=== PATIENT | female | born 1970 | race Caucasian/White ===

== ENCOUNTER 2019-09-26 15:53 | Inpatient (IN) ==
--- NOTE | 2019-09-26 17:30 | HISTORY AND PHYSICAL ---
HISTORY OF PRESENT ILLNESS: Ms. Heath is a 49-year-old followed, I believe by CHRISTINA Jauregui. She is complaining of increased work of breathing for the last couple days. She said that she has become more short of breath. Denies fever or chills. No pleuritic pain, but she has noticed increased orthopnea, increased swelling in her ankles. PAST MEDICAL HISTORY: Includes she had colon cancer with chemotherapy and resection. Following that, they found that she had liver cirrhosis which is fatty liver disease and they were talking about getting on a list for a bypass, but they are pursuing the gastric sleeve. She has a history of COPD, history of seizures, a history of fibromyalgia, diabetes mellitus type 2, hypertension. SURGERIES: She has had several. She has had both her knees replaced. She has had a hysterectomy, gallbladder taken out. I think she had surgery on her foot. She said there are others that she does not remember. ALLERGIES: Azithromycin. SOCIAL HISTORY: Patient lives at home. She is on disability. Just lost her dad this last year. Her primary care physician is CHRISTINA Banks. Denies alcohol, smoking, or illicit drugs. REVIEW OF SYSTEMS: General: No weight gain or loss that she is aware of. She has not been checking, but she does feel like she has had swelling in her feet. HEENT: No change in visual or hearing acuity. No adenopathy. No neck pain or neck swelling. Respiratory: As noted above. Cardiovascular: No chest pain or tachy palpitation. Gastrointestinal/genitourinary: Unremarkable. Musculoskeletal/Neurologic: No significant complaints Endocrinologic/hemologic: No significant history. PHYSICAL EXAMINATION: GENERAL: A well-developed, well-nourished, white female. Awake, alert, and oriented x3. CVP is about 10 cm water pressure from the angle of Wilfred. LUNGS: Clear. Decreased breath sounds at both bases, anterior and posterior. CARDIOVASCULAR: Regular rhythm and rate. PMI nondisplaced. Carotid, radial, and femoral pulses 2+ and symmetrical. ABDOMEN: Soft, nondistended, nontender. EXTREMITIES: She has trace pitting edema from the ankles to mid price. SKIN: Without any rashes. Oral and nasal mucosa unremarkable. ASSESSMENT AND PLAN: 1. Appears to have pulmonary venous hypertension. We are going to try and diurese her. We are going to watch her afterload and check her left ventricular function, make sure there is no sign of valvular dysfunction. I could not appreciate signs of that on exam. We will check serial cardiac enzymes and troponin. We will check T4 and TSH, B12 and folate. Recheck a proBNP in the morning. We will follow her electrolytes including sodium, potassium, and magnesium. Note the lab is pending at this time. 2. Distant history of colon cancer, status post colon resection with chemotherapy several years ago. 3. She has fatty liver disease with cirrhosis. 4. Morbid obesity. They are actually contemplating doing a gastric sleeve. 5. History of chronic obstructive pulmonary disease on her past history. 6. Hypertension. cc: Chi Espinoza MD
[2019-09-26] MEDS ORDERED: APRESOLINE PO ONE (17:57)
[2019-09-26 18:17] LABS: ALLEN TEST YES; BE 10.7 mmoll (-3.0-3.0); BLOOD TYPE ARTERIAL; HCO3-(ACT) 33.2 mmoll (20.0-26.0); O2(CT) 14.1 mL/dL (15.0-23.0); O2HB 93.6 % (95.0-99.0); PCO2(98.6) 45 mmHg (35-45); PO2(98.6) 65 mmHg (60-100); SAMPLE BLOOD; SAO2 96.6 % (95.0-100.0); THB 10.7 g/dL (11.5-17.4)
[2019-09-26 18:18] LABS: MODALITY CANNULA
[2019-09-26] MEDS: LASIX IV SCH (18:20)
--- NOTE | 2019-09-26 19:05 | Diag Imaging Result Doc PS360 ---
EXAM: CHEST-2 VIEWS 09/26/2019 HISTORY: Acute CHF exac. TECHNIQUE: AP and lateral chest upright COMMENT: The inspiration is suboptimal. There is increased pulmonary vascularity. There may be interstitial pulmonary edema. This appears worse compared to 06/11/2015. IMPRESSION: Mild pulmonary edema. Electronically signed by Merrill Petty 09/26/2019 7:02 PM
[2019-09-26] MEDS: TYLENOL PO PRN (21:57)
[2019-09-26] MEDS: ZOFRAN IV PRN (21:57)
[2019-09-27] MEDS: DUONEB (A & A) INH SCH ×4 (03:17→22:11)
[2019-09-27] MEDS: LASIX IV SCH ×2 (05:13→12:24)
[2019-09-27 06:00] LABS: ALLEN TEST YES; BE 11.8 mmoll (-3.0-3.0); BLOOD TYPE ARTERIAL; HCO3-(ACT) 34.1 mmoll (20.0-26.0); O2(CT) 14.1 mL/dL (15.0-23.0); O2HB 95.6 % (95.0-99.0); PCO2(98.6) 48 mmHg (35-45); PO2(98.6) 84 mmHg (60-100); SAMPLE BLOOD; SAO2 98.8 % (95.0-100.0); THB 10.4 g/dL (11.5-17.4); pH(98.6) 7.49 (7.35-7.45)
[2019-09-27 06:01] LABS: MODALITY CANNULA
[2019-09-27 06:24] LABS: AGAP 14; ALB/GLOB RATIO 0.8; ALBUMIN 2.8 g/dL (3.5-5.0); ALKALINE PHOSPHATASE 130 U/L (32-104); BUN 13 mg/dL (8-22); CALCIUM 8.1 mg/dL (8.8-10.2); CHLORIDE 94 mmol/L (98-107); COSMO 279; CREATININE 0.9 mg/dL (0.5-0.9); ESTIMATED GFR > 60; GLUCOSE 131 mg/dL (70-104); GOT 36 U/L (10-30); GPT 19 U/L (10-36); POTASSIUM 2.9 mmol/L (3.5-5.1); SODIUM 139 mmol/L (136-145); TCO2 31 mmol/L (25-35); TOTAL BILIRUBIN 1.46 mg/dL (0.20-1.00); TOTAL PROTEIN 6.5 g/dL (6.3-8.3)
[2019-09-27 06:28] LABS: BASO# 0.05 X1000 (0.0-0.2); BASO% 0.9 % (0.0-0.8); EOS# 0.06 X1000 (0.0-0.7); EOS% 1.1 % (0.0-10.0); HEMATOCRIT 33.7 % (37.0-47.0); HEMOGLOBIN 10.5 g/dL (12.0-16.0); LYMPH# 1.68 X1000 (1.2-3.4); LYMPH% 29.5 % (20.5-51.1); MCH 25.9 PG (27-31); MCHC 31.2 g/dL (33-37); MCV 83.2 FL (81-99); MONO% 17.6 % (1.7-9.3); MPV 10.6 FL (7.4-10.4); NEUT% 50.9 % (42.2-75.2); PLT 97 X1000 (130-400); RBC 4.05 XMIL (4.2-5.4); RDW 19.4 % (11.5-14.5); WBC 5.69 X1000 (4.8-10.8)
--- NOTE | 2019-09-27 07:19 | Diag Imaging Result Doc PS360 ---
EXAM: CHEST-PORTABLE 09/27/2019 HISTORY: Dyspnea,Pulmonary Edema,CHF TECHNIQUE: AP portable upright at 0510 COMMENT: There is a Port-A-Cath on the right with its tip just above the right atrium. The inspiration is less optimal than on 09/26/2019 and there is slightly more parahilar opacity in the right upper lobe than on the previous study. IMPRESSION: Slightly worsened pulmonary edema versus pneumonia particularly in the right upper lobe. Electronically signed by Merrill Petty 09/27/2019 7:16 AM
[2019-09-27] MEDS: ZOFRAN IV PRN ×3 (07:59→19:43)
[2019-09-27] MEDS: NORCO-10 PO PRN ×2 (12:24→21:11)
[2019-09-27 12:40] LABS: CK INDEX 0.4 (0.0-2.5); CK-MB 1.05 ng/mL (0.0-5.0)
--- NOTE | 2019-09-27 14:48 | PROGRESS NOTE ---
DATE: 09/27/2019 SUBJECTIVE: Patient does not feel like she is breathing much better. She seems to be doing okay. She is off BiPAP, but she also complained of nausea and vomiting. OBJECTIVE: Blood pressure is 140/96, heart rate 97, temp was 99.4, respiratory rate 19.Cardiovascular: Regular rate and rhythm. Pulmonary: Bilateral breath sounds clear to auscultation. GI: Soft, nontender, nondistended. Bowel sounds are positive. LABORATORY DATA: Potassium is down to 2.9, T bilirubin 1.46, AST and ALT 36 and 19. CPK went up from 59 to 254 with a normal troponin. PH 7.49, pCO2 48, PO2 84. Hemoglobin and hematocrit 10 and 33, platelets are 97,000. PROBLEM LIST: 1. Acute congestive heart failure exacerbation, likely may be the initial trigger. She sounds improved after diuretics intravenously. We will continue treatment and follow closely. Awaiting echo to decide about this is true CHF versus cor pulmonale related to obstructive sleep apnea. 2. Cirrhosis with chronic liver disease, she feels is related to chemotherapy. We will continue to monitor. She probably needs to be on some Aldactone. She is really not on any diuretics or anything, but we will continue diuresis and see how she does. 3. Abdominal pain, nausea, vomiting, unclear etiology. Could be passive congestion. We will continue to monitor. Get an abdominal ultrasound and follow. 4. Hypokalemia. We will supplement, follow, check her magnesium levels and monitor. DISPOSITION: Pending her clinical status. If there has been a clear CHF diagnosis, we will get a cardiology consult and follow. I am awaiting echo results before we pursue anything further from that standpoint. We will need to advise on weight loss long-term. Apparently, she is being evaluated for gastric sleeve to see about weight loss from that standpoint. cc: Alec Merino MD
--- NOTE | 2019-09-27 15:05 | Diag Imaging Result Doc PS360 ---
EXAM: US ABDOMEN-COMPLETE 09/27/2019 HISTORY: abdominal pain TECHNIQUE: Abdominal ultrasound COMMENT: The study is markedly suboptimal due to the patient's body habitus. The aorta and inferior vena cava are not well seen. The pancreas is obscured. Very poor detail is seen in the liver. The gallbladder surgically absent. The common bile duct measures almost 14 mm in diameter. There is an apparent 7 mm calculus present in the right renal collecting system anteriorly. There is no evidence of hydronephrosis on either side. There are no definite fluid collections. The spleen is enlarged measuring over 16 cm. IMPRESSION: Suboptimal study. Right nephrolithiasis. Distended common bile duct. This is possible this is physiologic following cholecystectomy. Splenomegaly. Electronically signed by Merrill Petty 09/27/2019 3:03 PM
[2019-09-27] MEDS: POTASSIUM CHLORIDE 20 MEQ/SWI 20 MEQ/100 ML IVPB IV SCH ×2 (15:14→17:38)
[2019-09-27] MEDS: MIRAPEX PO SCH ×2 (15:15→21:11)
[2019-09-27] MEDS: MAXIPIME 2 GM/NS 2 GM/100 ML IVPB IV SCH (15:15)
[2019-09-27] MEDS: PHENERGAN IV PRN (16:33)
[2019-09-27] MEDS: SODIUM CHLORIDE 0.9% INJ PRN (16:33)
[2019-09-27] MEDS ORDERED: MIRAPEX PO SCH (17:00)
[2019-09-27] MEDS: SEROQUEL PO SCH (21:11)
[2019-09-27 21:27] LABS: ALB/GLOB RATIO 0.8; ALBUMIN 2.9 g/dL (3.5-5.0); CALCIUM 7.6 mg/dL (8.8-10.2); POTASSIUM 3.1 mmol/L (3.5-5.1); TOTAL BILIRUBIN 1.35 mg/dL (0.20-1.00); TOTAL PROTEIN 6.5 g/dL (6.3-8.3)
[2019-09-27] MEDS ORDERED: POTASSIUM CHLORIDE 20% LIQUID PO ONE (23:41)
[2019-09-28] MEDS: MAXIPIME 2 GM/NS 2 GM/100 ML IVPB IV SCH ×2 (00:18→12:54)
[2019-09-28] MEDS: LASIX IV SCH ×2 (00:19→12:53)
[2019-09-28] MEDS: DUONEB (A & A) INH SCH ×6 (03:26→23:14)
[2019-09-28 04:34] LABS: MAGNESIUM 1.7 mg/dL (1.5-2.7); POTASSIUM 3.4 mmol/L (3.5-5.1)
[2019-09-28 04:51] LABS: BASO# 0.06 X1000 (0.0-0.2); BASO% 1.7 % (0.0-0.8); EOS# 0.06 X1000 (0.0-0.7); EOS% 1.7 % (0.0-10.0); HEMATOCRIT 33.7 % (37.0-47.0); HEMOGLOBIN 10.4 g/dL (12.0-16.0); LYMPH# 0.87 X1000 (1.2-3.4); LYMPH% 24.1 % (20.5-51.1); MCH 26.3 PG (27-31); MCHC 30.9 g/dL (33-37); MCV 85.3 FL (81-99); MONO# 0.78 X1000 (0.11-0.59); MONO% 21.6 % (1.7-9.3); MPV 11.9 FL (7.4-10.4); NEUT# 1.84 X1000 (1.4-6.5); NEUT% 50.9 % (42.2-75.2); PLT 94 X1000 (130-400); RBC 3.95 XMIL (4.2-5.4); RDW 19.9 % (11.5-14.5); WBC 3.61 X1000 (4.8-10.8)
[2019-09-28] MEDS ORDERED: POTASSIUM CHLORIDE 20% LIQUID PO ONE (05:43)
[2019-09-28 07:17] LABS: LYMPHS 42 % (21-51); MONO 6 % (1-9); SEGS 52 % (42-75)
[2019-09-28] MEDS ORDERED: MIRAPEX PO SCH (09:00)
[2019-09-28] MEDS: MIRAPEX PO SCH ×3 (09:05→20:06)
--- NOTE | 2019-09-28 10:43 | ECHO REPORT ---
ORDER DATE: 09/27/2019 ECHOCARDIOGRAPHIC MEASUREMENTS: 1. Septal thickness 1.2. 2. Left ventricular internal diameter in diastole 3.9. SUMMARY: 1. Very difficult study for interpretation due to very limited acoustic window quality. Intravenous echo contrast agent Optison was utilized to enhance endocardial definition. 2. Aortic valve is without gross structural abnormality and appears to open adequately on 2- dimensional images. The peak gradient across the aortic valve is 11 mmHg. Mitral and tricuspid valves are without gross structural abnormality, while pulmonic valve is not well demonstrated. There is trace tricuspid regurgitation. The aortic root is grossly normal in size, 3. Normal left ventricular chamber size with mild concentric left ventricular hypertrophy is suggested on 2-dimensional images. The estimated left ventricular ejection fraction appears to be at least 55%. No obvious regional wall motion abnormalities can be appreciated. The left atrium, right atrium, and right ventricle are grossly normal in size. 4. No pericardial effusion. 5. Inferior vena cava not well demonstrated. cc: MD Peggy Tenorio CRNP
--- NOTE | 2019-09-28 12:46 | Diag Imaging Result Doc PS360 ---
EXAM: CHEST-PORTABLE INDICATION: dyspnea TECHNIQUE: One view COMPARISON: 09/27/2019 FINDINGS: The chest port is in stable position. Inspiration is suboptimal similar to the previous study. Perihilar opacities most consistent with pulmonary edema and pulmonary venous congestion are grossly unchanged. No new consolidation is identified. Cardiac silhouette is stable. IMPRESSION: Grossly stable chest. Electronically signed by Matt Humphrey 09/28/2019 12:44 PM
[2019-09-28] MEDS: SOLU-MEDROL IV SCH ×2 (12:53→20:07)
[2019-09-28] MEDS: NORCO-10 PO PRN ×2 (12:54→22:12)
[2019-09-28] MEDS: ALDACTONE PO SCH (16:55)
--- NOTE | 2019-09-28 17:36 | PROGRESS NOTE ---
DATE: 09/28/2019 SUBJECTIVE: The patient has no major complaints except she feels like she just cannot breathe. She had an episode last night where she just was having a lot of shortness of breath and could not catch her breath. OBJECTIVE: Vital signs: Blood pressure 122/77, heart rate of 106, respiratory rate of 20, temperature 99.2 degrees. Cardiovascular: Regular rate and rhythm. Pulmonary: Bilateral breath sounds clear to auscultation. Gastrointestinal: Soft, nontender, nondistended. Bowel sounds are positive. LABORATORY DATA: White count 3.6, hemoglobin and hematocrit 10 and 33, platelets of 94,000. Potassium is just 3.9 today. PROBLEM LIST: 1. Acute congestive heart failure exacerbation, diastolic. We will continue diuretics and follow. Her echocardiogram really did not look that bad. I am not entirely sure this may not be cor pulmonale or secondary pulmonary edema that is not related to congestive heart failure, and today she has much more bronchospasm as well. 2. Hypercapnic respiratory failure. We are trying to wean her BiPAP off. She had to go back on it last night. 3. Cirrhosis, compensated. We will continue diuretics. We will add a little bit of low-dose Aldactone, and we will see how things go especially with her next problem. 4. Hypokalemia. We will continue treatment supplementation. Check magnesium levels. 5. Chronic obstructive pulmonary disease exacerbation. She is on antibiotics, breathing treatments. We will add steroids because she has some wheezing today and get a pulmonary opinion. We will continue to monitor her in the [facility] for the time being. cc: Alec Merino MD
[2019-09-28] MEDS: SEROQUEL PO SCH (20:07)
[2019-09-29] MEDS: LASIX IV SCH ×2 (00:13→12:25)
[2019-09-29] MEDS: MAXIPIME 2 GM/NS 2 GM/100 ML IVPB IV SCH ×2 (00:13→12:25)
--- NOTE | 2019-09-29 00:29 | CONSULTATION ---
DATE OF CONSULTATION: 09/28/2019 REQUESTING PROVIDER: Alec Merino MD REASON FOR CONSULTATION: Respiratory failure. HISTORY OF PRESENT ILLNESS: This is a 49-year-old female with a medical history of COPD with chronic hypoxic respiratory failure, morbid obesity, obstructive sleep apnea, colon cancer, cirrhosis with chronic liver disease, fibromyalgia. It appears like she was directly admitted since 09/26/2019 with pulmonary venous hypertension, with worsening shortness of breath. She has been treated with Lasix twice a day, of which the dosage has being increase from 40 to 60 mg since yesterday. Cefepime was started yesterday, and today the patient started receiving IV Solu- Medrol, too. The patient reported productive cough which somehow has been worsening today. The sputum has become loose with some yellow thick spots. The patient has intermittent nausea and vomiting, especially yesterday. She has been improving today. Also has some mild diarrhea. The patient also reports chronic difficulty hearing, chronic pedal edema which actually has been improved since admission. Witnessed snoring, daily sleepiness and generalized weakness. She has no fever, chills, chest pain, palpitations, bowel habit change or urination discomfort currently. PAST MEDICAL HISTORY: 1. COPD with chronic hypoxic respiratory failure. The patient is on 2.5 L oxygen at home for several years. 2. Morbid obesity. Current BMI 49.8. 3. Obstructive sleep apnea. Last sleep study was done 3 years ago. The patient stated that she cannot afford a CPAP machine, so she has not used any CPAP or BiPAP. 4. History of colon cancer in 2013, status post surgical removal and chemotherapy. 5. Cirrhosis with chronic liver disease. The patient reported that this was diagnosed after chemotherapy for colon cancer, and she was told that the chemotherapy may contribute to her chronic liver disease. 6. Fibromyalgia. 7. History of seizure. 8. Diabetes mellitus type 2. 9. Hypertension. 10. Restless leg syndrome. 11. GERD. 12. Status post bilateral knee replacement. 13. Status post hysterectomy. 14. Status post cholecystectomy. 15. Status post some foot surgery. FAMILY HISTORY: Positive for COPD, heart attack, endstage renal disease and cirrhosis. SOCIAL HISTORY: The patient lives at home with her family. She has 3 children. She has 2 indoor dogs and 1 indoor cat as pets. She is on disability. She lost her father this February. She has no history of alcohol, tobacco or illicit drug use. She does have extensive secondhand smoking exposure when she was young. ALLERGIES: Azithromycin and adhesive tape. REVIEW OF SYSTEMS: A 10-point review of systems was conducted, and the pertinence is listed within the HPI, otherwise noncontributory. PHYSICAL EXAMINATION: Vital signs: Temperature 99.2, blood pressure 122/77, pulse 106, respiratory rate 20, oxygen saturation 95% on nasal cannula at 3 L.General: Morbidly obese, lying in bed. On BiPAP mask originally, with pressure 12/5 and FIO2 of 32%. After I stepped in, the patient took the BiPAP mask off and put on nasal cannula at 3 L, and she tolerates well. HEENT: Atraumatic, normocephalic. Trachea midline. Mucosa pink and moist. Respiratory: Even and unlabored. Symmetrical excursion. Auscultation revealed diminished breathing sounds bilaterally, prolonged expiratory phase and some mild to moderate expiratory wheezing, with left side worse than the right side. Cardiovascular: Regular rate and rhythm. Gastrointestinal: Soft, obese, protuberant, nontender. Normoactive bowel sounds in all 4 quadrants. Extremities: No pedal edema. No cyanosis. No clubbing. Dorsalis pedis 1+ bilaterally. Neurologic: Alert and oriented x4. Speech fluent. Follows commands. LABORATORY DATA: White blood cells 3.61, hemoglobin 10.4, hematocrit 33.7, platelets 94,000. Potassium 3.9. DIAGNOSTIC DATA: Chest x-ray this morning showed grossly stable chest with perihilar opacities, most consistent with pulmonary edema and pulmonary venous congestion. ASSESSMENT: This is a 49-year-old female with a medical history of chronic obstructive pulmonary disease with chronic hypoxic respiratory failure, morbid obesity, obstructive sleep apnea, colon cancer, cirrhosis with chronic liver disease, fibromyalgia, seizure, diabetes mellitus type 2 and hypertension. She has been admitted since 09/26/2019 with pulmonary venous hypertension and worsening shortness of breath. 1. [id number] hypoxic respiratory failure, currently on nasal cannula at 3 L and patient tolerates very well. 2. Chronic obstructive pulmonary disease exacerbation. 3. Morbid obesity with obstructive sleep apnea. 4. Pulmonary edema and pulmonary venous congestion. PLAN: 1. Continue supplemental oxygen. Continue BiPAP at bedtime and as needed. 2. Continue antibiotics, steroid and bronchodilators. 3. Follow up with CBC, BMP and chest x-ray if indicated. 4. Recommend patient to have outpatient sleep study after discharge. The patient reported that currently she has [employer] insurance, and she is ready to get a CPAP or BiPAP device if needed. 5. Recommend weight control. 6. Further recommendations pending hospital course. Thank you for the courtesy of this consult. Dictated by CHRISTINA Reed for Summer Fisher MD cc: CHRISTINA Reed MD [facility]
[2019-09-29] MEDS: DUONEB (A & A) INH SCH ×6 (03:24→23:22)
[2019-09-29] MEDS: SOLU-MEDROL IV SCH ×3 (04:01→20:54)
[2019-09-29 05:59] LABS: BASO# 0.01 X1000 (0.0-0.2); BASO% 0.3 % (0.0-0.8); HEMATOCRIT 33.9 % (37.0-47.0); HEMOGLOBIN 10.2 g/dL (12.0-16.0); LYMPH# 0.43 X1000 (1.2-3.4); LYMPH% 10.9 % (20.5-51.1); MCH 25.1 PG (27-31); MCHC 30.1 g/dL (33-37); MCV 83.5 FL (81-99); MONO# 0.17 X1000 (0.11-0.59); MONO% 4.3 % (1.7-9.3); MPV 10.8 FL (7.4-10.4); NEUT# 3.34 X1000 (1.4-6.5); NEUT% 84.5 % (42.2-75.2); PLT 69 X1000 (130-400); RBC 4.06 XMIL (4.2-5.4); RDW 18.8 % (11.5-14.5); WBC 3.95 X1000 (4.8-10.8)
[2019-09-29 06:33] LABS: AGAP 9; BUN 15 mg/dL (8-22); CALCIUM 8.5 mg/dL (8.8-10.2); CHLORIDE 90 mmol/L (98-107); COSMO 274; CREATININE 0.9 mg/dL (0.5-0.9); ESTIMATED GFR > 60; GLUCOSE 188 mg/dL (70-104); POTASSIUM 3.4 mmol/L (3.5-5.1); SODIUM 134 mmol/L (136-145); TCO2 35 mmol/L (25-35)
[2019-09-29] MEDS: ALDACTONE PO SCH (08:38)
[2019-09-29] MEDS: MIRAPEX PO SCH ×3 (08:38→20:53)
[2019-09-29] MEDS ORDERED: ROBITUSSIN-DM PO PRN (08:57)
[2019-09-29] MEDS: NORCO-10 PO PRN (15:17)
[2019-09-29] MEDS ORDERED: KLOR-CON PO ONE (16:34)
--- NOTE | 2019-09-29 19:59 | PROGRESS NOTE ---
DATE: 09/29/2019 SUBJECTIVE: She looks better today. She is not working as hard to breathe. OBJECTIVE: vital signs: Blood pressure is 137/79, heart rate of 107, respiratory rate 17, temperature 98.7 degrees, 94%. Cardiovascular: Regular rate and rhythm. Pulmonary: Bilateral breath sounds. Clear to auscultation. Gastrointestinal: Soft, nontender, nondistended. Bowel sounds were positive. LABORATORY DATA: White count 3.9, hemoglobin and hematocrit 10 and 33, platelets of 69,000. Potassium 3.4. ProBNP of 38 which is inconsistent with CHF. PROBLEM LIST: 1. Acute hypercapnic respiratory failure which is likely due to obesity hypoventilation Pickwickian syndrome. She seems to be doing better. I think I would consider setting her up with Trilogy. We will discuss this with Dr. Fisher. 2. Cor pulmonale exacerbation. She has diastolic heart failure. I do not think she has true congestive heart failure in the sense of primary heart failure. She is responding to diuretics. I think I am going to back down a little bit on those. But her proBNP is negative which would argue against heart failure although I do think she has a component of pulmonary edema. 3. Cirrhosis. Aware of diagnosis. Appears to be compensated for the most part. 4. Acute chronic obstructive pulmonary disease exacerbation. We will continue breathing treatments and antibiotics and follow. DISPOSITION: I think she is improving. cc: Alec Merino MD
[2019-09-29] MEDS: SEROQUEL PO SCH (20:53)
[2019-09-29] MEDS: MIRALAX PO SCH (21:09)
[2019-09-30] MEDS: LASIX IV SCH ×2 (00:24→12:56)
[2019-09-30] MEDS: MAXIPIME 2 GM/NS 2 GM/100 ML IVPB IV SCH ×2 (00:24→13:04)
[2019-09-30] MEDS: NORCO-10 PO PRN ×2 (01:52→23:39)
[2019-09-30] MEDS: DUONEB (A & A) INH SCH ×6 (03:43→22:41)
[2019-09-30] MEDS: SOLU-MEDROL IV SCH ×3 (04:54→22:34)
[2019-09-30 06:22] LABS: BASO# 0.01 X1000 (0.0-0.2); BASO% 0.1 % (0.0-0.8); EOS# 0.02 X1000 (0.0-0.7); EOS% 0.2 % (0.0-10.0); HEMATOCRIT 33.4 % (37.0-47.0); LYMPH# 0.74 X1000 (1.2-3.4); LYMPH% 7.7 % (20.5-51.1); MCH 25.2 PG (27-31); MCHC 29.9 g/dL (33-37); MCV 84.1 FL (81-99); MONO# 0.53 X1000 (0.11-0.59); MONO% 5.5 % (1.7-9.3); MPV 10.9 FL (7.4-10.4); NEUT# 8.25 X1000 (1.4-6.5); NEUT% 86.5 % (42.2-75.2); PLT 71 X1000 (130-400); RBC 3.97 XMIL (4.2-5.4); RDW 18.7 % (11.5-14.5); WBC 9.55 X1000 (4.8-10.8)
[2019-09-30] MEDS: TYLENOL PO PRN (06:53)
[2019-09-30 07:34] LABS: AGAP 9; BUN 22 mg/dL (8-22); CALCIUM 9.2 mg/dL (8.8-10.2); CHLORIDE 91 mmol/L (98-107); COSMO 279; CREATININE 0.8 mg/dL (0.5-0.9); ESTIMATED GFR > 60; GLUCOSE 192 mg/dL (70-104); POTASSIUM 4.6 mmol/L (3.5-5.1); SODIUM 135 mmol/L (136-145); TCO2 35 mmol/L (25-35)
[2019-09-30] MEDS: MIRALAX PO SCH (08:09)
[2019-09-30] MEDS: MIRAPEX PO SCH ×3 (08:09→20:30)
[2019-09-30] MEDS: ALDACTONE PO SCH (08:09)
[2019-09-30 10:17] LABS: BANDS 8 % (0-1); LYMPHS 2 % (21-51); SEGS 90 % (42-75)
[2019-09-30 10:29] LABS: HYPOCHROM 1+
[2019-09-30] MEDS ORDERED: PEPCID PO SCH (11:00)
--- NOTE | 2019-09-30 13:34 | PROVIDER PROGRESS NOTE ---
Progress Note Pulmonary Additional Note: Respiratory failure and hypercarbia in the setting of morbid obesity. She should benefit from Treology machine.
--- NOTE | 2019-09-30 14:47 | PROGRESS NOTE ---
DATE: 09/30/2019 SUBJECTIVE: She is breathing better. Apparently, she got a shower today. OBJECTIVE: Vital signs: Blood pressure 142/86, heart rate of 108, respiratory rate 20, temperature 98.6 degrees, 94% on 3 L. Cardiovascular: Regular rate and rhythm, somewhat muffled. Pulmonary: I did not appreciate any end-expiratory wheezes today. GI: Soft, nontender, nondistended. Bowel sounds are positive. Extremities: She has trace edema. LABORATORY DATA: White count is 9.5, hemoglobin and hematocrit 10 and 33, platelets are 71,000 and they have been low this whole time, but she does have a history of cirrhosis. Sodium is 135. ProBNP is still normal. PROBLEM LIST: 1. Acute hypercapnic respiratory failure due to obesity hypoventilation, sleep apnea, Pickwickian syndrome. She is improving. I have discussed with Dr. Fisher about setting her up with outpatient positive-pressure ventilation. She is due for a gastric sleeve and hopefully that will help with the weight issues. But in the meantime, I think she is going to need positive pressure support at home to help regulate her breathing. She has persistent hypercapnia and will likely need this. I have discussed the case with Dr. Fisher. 2. Cor pulmonale exacerbation, diastolic heart failure exacerbation. We will continue diuretics. ProBNP is normal but again, I think this is CHF related to elevated right-sided heart pressures and not systolic heart failure or anything like that. 3. Presumed bronchitis, chronic obstructive pulmonary disease exacerbation. I think we are going to wean her steroids a bit today. She is on empiric antibiotics with cefepime. 4. Cirrhosis is I think overall compensated. We will continue her regular medications and follow. DISPOSITION: Pending clinical status. I think she is probably close to being able to go to the floor. We will continue to monitor and then hopefully she can get home soon. cc: Alec Merino MD
[2019-09-30] MEDS: PRILOSEC PO SCH (20:31)
[2019-09-30] MEDS: SEROQUEL PO SCH (22:35)
[2019-10-01] MEDS: LASIX IV SCH ×2 (01:31→12:55)
[2019-10-01] MEDS: MAXIPIME 2 GM/NS 2 GM/100 ML IVPB IV SCH ×2 (01:32→12:55)
[2019-10-01] MEDS: DUONEB (A & A) INH SCH ×6 (03:16→22:50)
[2019-10-01] MEDS: PRILOSEC PO SCH ×2 (06:27→21:30)
[2019-10-01 06:56] LABS: BASO# 0.01 X1000 (0.0-0.2); BASO% 0.2 % (0.0-0.8); HEMATOCRIT 32.1 % (37.0-47.0); HEMOGLOBIN 9.5 g/dL (12.0-16.0); IMM GRAN# 0.02 X1000 (0.0-0.04); IMM GRAN% 0.3 % (0.0-0.5); LYMPH# 0.79 X1000 (1.2-3.4); LYMPH% 12.1 % (20.5-51.1); MCH 25.1 PG (27-31); MCHC 29.6 g/dL (33-37); MCV 84.7 FL (81-99); MONO# 0.31 X1000 (0.11-0.59); MONO% 4.7 % (1.7-9.3); MPV 11.3 FL (7.4-10.4); NEUT# 5.42 X1000 (1.4-6.5); NEUT% 82.7 % (42.2-75.2); PLT 68 X1000 (130-400); RBC 3.79 XMIL (4.2-5.4); WBC 6.55 X1000 (4.8-10.8)
[2019-10-01 07:29] LABS: AGAP 7; BUN 29 mg/dL (8-22); CALCIUM 9.2 mg/dL (8.8-10.2); CHLORIDE 90 mmol/L (98-107); COSMO 282; CREATININE 0.8 mg/dL (0.5-0.9); ESTIMATED GFR > 60; GLUCOSE 234 mg/dL (70-104); MAGNESIUM 2.3 mg/dL (1.5-2.7); SODIUM 134 mmol/L (136-145); TCO2 37 mmol/L (25-35)
[2019-10-01 08:02] LABS: BANDS 2 % (0-1); LYMPHS 4 % (21-51); MONO 8 % (1-9); SEGS 86 % (42-75)
[2019-10-01] MEDS: ALDACTONE PO SCH (08:55)
[2019-10-01] MEDS: MIRALAX PO SCH (08:55)
[2019-10-01] MEDS: MIRAPEX PO SCH ×3 (08:55→21:29)
[2019-10-01] MEDS: SOLU-MEDROL IV SCH ×2 (09:00→21:28)
--- NOTE | 2019-10-01 14:10 | PROGRESS NOTE ---
DATE: 10/01/2019 SUBJECTIVE: This patient is still having generalized wheezing and some shortness of breath. She is coughing, but nothing is coming up. She feels weak, but she feels that is she is breathing a little bit better. OBJECTIVE: Vital Signs: Temperature 97.7 degrees, pulse 96, respiratory rate 18, blood pressure 166/85, oxygen saturation 98 on 2 L of nasal cannula. HEENT: Head normocephalic, no trauma. PERRLA. Neck: Supple. I cannot see JVD because of her neck size. Central trachea. Chest: Decreased breath sounds globally with prolonged expiratory phase and expiratory wheezing bilaterally, some crepitus at the bases, probably mild crackles also at the bases as well. Abdomen: Soft, protuberant, nontender, nondistended. No hepatosplenomegaly. Extremities: Trace lower extremity edema. No clubbing. No cyanosis. Neurological examination: The patient is awake, alert. She is oriented x3. No focal deficits. LABORATORY: WBC 6.5, hemoglobin 9.5, hematocrit 32.1, platelets 68. Sodium 134, potassium 5, chloride 90, bicarbonate 37. BUN 28, creatinine 0.8, glucose 234, calcium 9.2, magnesium 2.3. ASSESSMENT AND PLAN: 1. Acute on chronic hypoxemic and hypercarbic respiratory failure due to COPD exacerbation. 2. Obesity hypoventilation syndrome. 3. Sleep apnea. 4. Pickwickian syndrome. She is getting better slowly. Pulmonary Department following this patient closely, and they actually have recommended given her respiratory failure and hypercarbia in the setting of morbid obesity, a Trilogy machine. We will follow that. For now we will continue with same management. 5. Diastolic heart failure exacerbation with possible cor pulmonale. Continue with diuretics. We are not documenting the urine output, but as per the patient she is voiding good. 6. Bronchitis. Continue with antibiotics. 7. Chronic obstructive pulmonary disease exacerbation. Continue breathing treatment, steroids and antibiotics as well, oxygen supplementation; actually she is on home oxygen already. 8. Liver cirrhosis. This is well compensated. We will continue with the same management for now. 9. Morbid obesity with a body mass index of 49.6, aware. Diet and exercise have been discussed. 10. Hyperglycemia likely due to steroids. As per the patient, she has diabetes. I will get a hemoglobin A1c tomorrow. I do not see any medication for diabetes on her home medications. She is on steroids. cc: Francis Owens MD
[2019-10-01] MEDS: SEROQUEL PO SCH (21:28)
[2019-10-01] MEDS: DULCOLAX PR SCH (21:30)
--- NOTE | 2019-10-01 23:11 | PULMONOLOGY PROGRESS NOTE ---
DATE: 10/01/2019 SUBJECTIVE: The patient is awake and alert. She reports some difficulty with swallowing and food sticking. OBJECTIVE: General: The patient is awake, alert, and conversant. Vital signs: Blood pressure 162/75, heart rate 105, respiratory rate 18, oxygen saturation 96% on 2 L per nasal cannula. HEENT: Pupils are equal and reactive. Oropharynx appears clear. Neck: Supple. Chest: Reveals crackles in both lung bases. Cardiac exam: S1, S2. Abdomen: Obese and soft. Extremities: Reveal trace to 1+ peripheral edema. LABORATORIES: White blood count 134, potassium 5.0, chloride 90, bicarbonate 37, BUN 29, creatinine 0.8. White blood count 6.55, hemoglobin 9.5, platelet count 68,000. IMPRESSION: A 49-year-old with: 1. Acute on chronic hypoxemic respiratory failure. 2. Chronic hypercapnic respiratory failure. 3. Cor pulmonale. 4. History of cirrhosis. PLAN: 1. Anticipate Trilogy at the time of discharge. 2. Continue diuretics as tolerated. 3. Continue oxygen for hypoxemic respiratory failure. 4. Long-term, she would benefit from weight loss because she has a BMI of 49. 5. Two-view chest x-ray tomorrow. cc: Kenji Cervantes MD
[2019-10-02] MEDS: LASIX IV SCH ×4 (00:32→21:38)
[2019-10-02] MEDS: MAXIPIME 2 GM/NS 2 GM/100 ML IVPB IV SCH ×2 (00:32→14:33)
[2019-10-02] MEDS: NORCO-10 PO PRN ×2 (00:48→23:45)
[2019-10-02] MEDS: DUONEB (A & A) INH SCH ×6 (03:03→23:22)
[2019-10-02] MEDS: PRILOSEC PO SCH ×2 (06:00→21:38)
[2019-10-02 06:45] LABS: ALB/GLOB RATIO 0.8; ALBUMIN 2.8 g/dL (3.5-5.0); MAGNESIUM 2.4 mg/dL (1.5-2.7); PHOSPHORUS 3.3 mg/dL (2.7-4.5); POTASSIUM 4.9 mmol/L (3.5-5.1); TOTAL BILIRUBIN 1.38 mg/dL (0.20-1.00); TOTAL PROTEIN 6.3 g/dL (6.3-8.3)
[2019-10-02 06:53] LABS: HEMOGLOBIN A1C 5.3 % (4.8-6.0)
[2019-10-02 06:55] LABS: HEMATOCRIT 31.6 % (37.0-47.0); HEMOGLOBIN 9.6 g/dL (12.0-16.0); IMM GRAN# 0.02 X1000 (0.0-0.04); IMM GRAN% 0.5 % (0.0-0.5); LYMPH# 0.59 X1000 (1.2-3.4); LYMPH% 13.5 % (20.5-51.1); MCH 25.5 PG (27-31); MCHC 30.4 g/dL (33-37); MCV 83.8 FL (81-99); MONO# 0.36 X1000 (0.11-0.59); MONO% 8.2 % (1.7-9.3); MPV 11.3 FL (7.4-10.4); NEUT% 77.8 % (42.2-75.2); PLT 64 X1000 (130-400); RBC 3.77 XMIL (4.2-5.4); RDW 18.8 % (11.5-14.5); WBC 4.37 X1000 (4.8-10.8)
[2019-10-02] MEDS: ALDACTONE PO SCH ×2 (07:54→08:02)
[2019-10-02] MEDS: MIRAPEX PO SCH ×4 (07:54→21:38)
[2019-10-02] MEDS: MIRALAX PO SCH ×2 (07:54→08:02)
[2019-10-02] MEDS: SOLU-MEDROL IV SCH ×3 (07:54→21:37)
[2019-10-02] MEDS: CARAFATE PO SCH ×3 (11:18→21:38)
--- NOTE | 2019-10-02 14:25 | Diag Imaging Result Doc PS360 ---
CHEST-2 VIEWS - 10/02/2019 INDICATION: abnormal exam COMPARISON: 09/28/2019 FINDINGS: Stable right chest port in good position. Stable severely low lung volumes. Stable significant cardiomegaly and pulmonary vascular congestion. No definite infiltrates or edema. No large pleural effusion. IMPRESSION: No change from prior. Electronically signed by Giovani Remy 10/02/2019 2:22 PM
--- NOTE | 2019-10-02 15:42 | PROGRESS NOTE ---
DATE: 10/02/2019 SUBJECTIVE: This patient is still complaining of some shortness of breath, but her breathing is better. She is still coughing but nothing is coming up. She feels generalized weakness as well. X-ray today with no significant changes compared with yesterday. OBJECTIVE: Vital Signs: Temperature 97.8 degrees, pulse 98, respiratory rate 18, blood pressure 146/77, oxygen saturation 98 on 3 L of nasal cannula. HEENT: Head normocephalic, no trauma. PERRLA. Neck: Supple. I do not see JVD because of her neck size. Central trachea. Chest: Decreased breath sounds globally with prolonged expiratory phase and expiratory wheezing, better compared with yesterday. Some crepitus at the bases. Mild crackles. Abdomen: Soft, protuberant, nontender, nondistended. No hepatosplenomegaly. Extremities: Trace lower extremity edema. No clubbing. No cyanosis. Neurological: This patient is awake, alert. She is oriented x3. No focal deficits but generalized weakness. LABORATORY: WBC 4.3, hemoglobin 9.6, hematocrit 31.6, platelets 64,000. Sodium 136, potassium 4.9, chloride 92, bicarbonate 37, BUN 30, creatinine 1, glucose 241. Hemoglobin A1c 5.3. Calcium 9, AST 33, ALT 29, alkaline phosphatase 120, albumin 2.8. ASSESSMENT AND PLAN: 1. Acute on chronic hypoxemic and hypercarbic respiratory failure due to chronic obstructive pulmonary disease exacerbation, aware. Continue breathing treatment as per Pulmonary Department. Likely this patient will need a Trilogy machine. 2. Obesity hypoventilation syndrome, sleep apnea, Pickwickian syndrome. She is getting better slowly. Pulmonary Department following this patient. They have recommended a Trilogy machine. We will follow up on that. For now we will continue with same management. 3. Diastolic heart failure exacerbation with possible cor pulmonale. Continue with diuretics. Will monitor the kidney function closely. BUN and creatinine is trending up a little bit. 4. Bronchitis. Continue with antibiotics. 5. Chronic obstructive pulmonary disease exacerbation. Continue breathing treatment. Continue with steroids as well. Probably I will start decreasing the amount of steroids tomorrow. Oxygen supplementation. She is already on home oxygen. 6. Liver cirrhosis. It looks well compensated. We will continue with same management for now. 7. Morbid obesity with a body mass index of 49.6, aware. Diet and exercise has been discussed. 8. Hyperglycemia, likely due to steroids. Hemoglobin A1c is good at 5.3. 9. Abdominal pain in the epigastric area. I have placed this patient on Protonix and also Carafate. She is having reflux. cc: Francis Owens MD
[2019-10-02] MEDS: PHENERGAN IV PRN ×2 (17:05→22:08)
--- NOTE | 2019-10-02 17:34 | PULMONOLOGY PROGRESS NOTE ---
DATE: 10/02/2019 SUBJECTIVE: The patient is awake, alert, and conversant. She reports that she did not wear her BiPAP machine last evening. She has actually not been documented to have BiPAP on for the last three days. OBJECTIVE: Vital Signs: The patient has been afebrile for the last 24 hours. Blood pressure 146/77, heart rate 98, respiratory rate 18, oxygen saturation 98% on 3 L per nasal cannula. HEENT: Pupils are equal and reactive. Oropharynx appears clear. Neck: Neck is supple. Chest: Chest reveals good air entry bilaterally without wheezing or rhonchi. Cardiac Exam: S1, S2. Abdomen: Abdomen is obese and soft. Extremities: Extremities reveal trace edema. LABORATORIES: White blood count 4.37, hemoglobin 9.6, platelet count 64,000. Chemistry: Sodium 136, potassium 4.9, chloride 92, bicarbonate 37, BUN 30, creatinine 1.0. IMAGING: Chest x-ray reveals shallow inspiration, cardiomegaly, with vascular congestion but no change. IMPRESSION: A 49-year-old with 1. Acute on chronic hypoxemic respiratory failure. 2. Chronic hypercapnic respiratory failure. 3. Cor pulmonale. 4. History of cirrhosis. DISCUSSION: A 49-year-old with problems outlined above. By report, Trelegy was suggested but this has not yet been arranged. The patient has been on nasal cannula for the last three days without decompensation. She should be able to be discharged and follow up for an outpatient sleep evaluation to obtain a prescription for a CPAP device. RECOMMENDATION: 1. Continue oxygen. 2. Transition patient to oral steroids and antibiotics. 3. Consider discontinuing antibiotics at this juncture. 4. Consider discharge with followup outpatient sleep study as outlined above. cc: Kenji Cervantes MD
[2019-10-02] MEDS: DULCOLAX PR SCH (21:38)
[2019-10-02] MEDS: SEROQUEL PO SCH (21:38)
[2019-10-02] MEDS: SODIUM CHLORIDE 0.9% INJ PRN (22:08)
[2019-10-03] MEDS: MAXIPIME 2 GM/NS 2 GM/100 ML IVPB IV SCH (01:42)
[2019-10-03] MEDS: DUONEB (A & A) INH SCH ×3 (03:28→11:29)
[2019-10-03] MEDS: CARAFATE PO SCH ×2 (06:03→10:20)
[2019-10-03] MEDS: PRILOSEC PO SCH (06:03)
[2019-10-03 08:42] LABS: CALCIUM 9.4 mg/dL (8.8-10.2)
[2019-10-03] MEDS: MIRALAX PO SCH (08:51)
[2019-10-03] MEDS: MIRAPEX PO SCH (08:53)
[2019-10-03] MEDS: ALDACTONE PO SCH (08:53)
[2019-10-03] MEDS: LASIX IV SCH (08:54)
[2019-10-03] MEDS ORDERED: PREDNISONE PO SCH (09:00)
[2019-10-03] MEDS: ZOFRAN IV PRN (10:20)
[2019-10-03 13:10] VITALS: BP 145/87
--- NOTE | 2019-10-03 17:44 | DISCHARGE SUMMARY ---
ADMISSION DATE: 09/26/2019 DISCHARGE DATE: 10/03/2019 DIAGNOSES: 1. Acute on chronic hypoxemic and hypercarbic respiratory failure. 2. Chronic obstructive pulmonary disease acute exacerbation. 3. Obesity hypoventilation syndrome, sleep apnea, Pickwickian syndrome. 4. Diastolic heart failure exacerbation with an ejection fraction of 55% on 09/27/2019. 5. Bronchitis. 6. Continue with home oxygen. 7. Liver cirrhosis, well compensated. 8. Morbid obesity with a body mass index of 50. 9. Hyperglycemia likely due to steroids with a hemoglobin A1c at 5.3. 10. Gastroesophageal reflux disease. 11. Cor pulmonale. CONSULTATIONS: Dr. Summer Fisher. DIAGNOSTICS: 1. Chest x-ray revealed pulmonary edema versus pneumonia in the right upper lobe. That is 09/27/2019. 2. A 09/28/2019 chest x-ray: Grossly stable chest. 3. A 10/02/2019 chest x-ray revealed severely low lung volumes, stable significant cardiomegaly, and pulmonary vascular congestion. No definite infiltrates or edema. 4. Echocardiogram revealed an ejection fraction of 55%. No obvious regional wall motion abnormalities can be appreciated. Concentric left ventricular hypertrophy. HOSPITAL COURSE: Miss Heath presented to the emergency room complaining of increased work of breathing for a few days prior with increasing orthopnea and lower extremity edema for which she was found to be in acute on chronic hypoxemic hypercarbic respiratory failure with COPD exacerbation. She was diuresed. Serial cardiac enzymes and troponin were obtained which were negative. ProBNP was followed which was 38 on admission and repeat was 107. She was initially placed on BiPAP. She was ordered BiPAP at night which she did use 1 or 2 nights. Then reportedly she refused BiPAP the last 3 nights of her admission. Of note, the patient has been worked up in the past approximately 3 years ago and it was recommended that she have CPAP or BiPAP although she said she could not afford a machine. She does state that she is ready to have a sleep study repeated and get CPAP or BiPAP. She was evaluated by Pulmonology. It was discussed with the patient the importance of losing weight by the hospitalist as well as the Pulmonary Service. Also it was discussed by Pulmonary as well as Hospitalist Service the importance of using her oxygen as prescribed and using BiPAP or CPAP at night. Pulmonology did recommend Trelegy and it appears that [employer] and Dr. Fisher are working on orders and getting approval through her insurance company. On followup with Dr. Fisher she will be able to schedule a sleep study and obtain Trelegy or CPAP/BiPAP. DISCHARGE VITAL SIGNS: Blood pressure is 145/87 with a heart rate of 100, respirations 17, and temperature is 97.5 degrees oral with O2 saturations of 97% on 3 L nasal cannula and 93% on room air. DISCHARGE PHYSICAL EXAMINATION: Cardiovascular: Regular rate and rhythm. She is tachycardic. S1 and S2 appreciated. Pulmonary: Breath sounds with scattered expiratory wheezes throughout. Chest rises and falls symmetric with respiration. Gastrointestinal: Abdomen is soft, nontender, and nondistended with bowel sounds in all 4 quadrants. Neurologic: She is alert and oriented x3. DISCHARGE MEDICATIONS: 1. Carafate 1 g before meals and at bedtime. 2. Spironolactone 100 mg p.o. daily. 3. Seroquel 400 mg p.o. at bedtime. 4. Mirapex 1 mg p.o. t.i.d. 5. MiraLAX 17 g p.o. daily. 6. Zofran ODT 4 mg q. 6 hours p.r.n. 7. Omeprazole 40 mg p.o. b.i.d. 8. Medrol Dosepak. Take as directed. 9. Lactulose 30 mL p.o. daily p.r.n. constipation. 10. Homeland 10/325 one q. 4 hours p.r.n. pain. 11. Robitussin DM 10 mL q. 4 hours p.r.n. cough. 12. Lasix 40 mg p.o. b.i.d. 13. Ventolin inhaler 2 puffs p.o. 4 times a day. 14. Tylenol 650 q. 6 hours p.r.n. FOLLOWUP: 1. Dr. Fisher. She needs to call the office tomorrow and set up an appointment within the next week to schedule a sleep study. 2. Nica Jauregui, her primary care provider. She is to call in the morning to schedule an appointment for 1 week. 3. The patient is followed by [facility]. 4. She has been instructed to call to be seen sooner or return to the emergency room for any syncope, dizziness, chest pain, palpitations, a temperature greater than 101 degrees, any increasing shortness of breath, PND, orthopnea, any nausea, vomiting, diarrhea, constipation, black or bloody vomitus or stools, hematuria, dysuria, frequency, or urgency. DISPOSITION: She is being discharged home in stable condition with family members. TIME SPENT: This is a greater than 30-minute discharge. Dictated by CHRISTINA Solorzano for Francis Owens MD cc: CHRISTINA Solorzano MD Kim Harbin, CRNP Mamoun I. Najjar, MD
--- NOTE | 2019-10-03 20:00 | PULMONOLOGY PROGRESS NOTE ---
DATE: 10/03/2019 SUBJECTIVE: The patient is awake, alert, and conversant. She reports she feels well. She has been ambulating in the room without difficulty. OBJECTIVE: Vital Signs: The patient has been afebrile for the last 24 hours. Blood pressure 111/51, heart rate 104, respiratory rate 17, oxygen saturation 97% on 3 L per nasal cannula. HEENT: Pupils are equal and reactive. Oropharynx is clear. Neck: Supple. Chest: Reveals crackles in the lung bases. Cardiac exam: S1, S2. Abdomen: Obese and soft. Extremities: Without edema. LABORATORY DATA: Sodium 132, potassium 5.0, chloride 90, bicarbonate 36, BUN 30, creatinine 1.0. IMPRESSION: A 49-year-old with: 1. Acute on chronic hypoxemic respiratory failure. 2. Chronic hypercapnic respiratory failure. 3. Presumptive obstructive sleep apnea. The patient previously was diagnosed with this but was not on CPAP at the time of admission. 4. Acute cor pulmonale. 5. History of cirrhosis. The patient attributes this to prior chemotherapy, but she is at risk for nonalcoholic steatohepatitis. RECOMMENDATIONS: 1. Anticipate discharge home today. 2. Continue oxygen at the time of discharge. 3. Complete antibiotics and taper steroids. 4. Recommend outpatient sleep evaluation. This can be scheduled through Dr. Fisher's office. 5. Recommend weight loss. The patient reports she is already been in contact with a physician, and a sleeve surgery is being considered. cc: Kenji Cervantes MD
== END 2019-10-03 14:30 | disposition home health service (06) | DRG 189 ==
LOC: SUATTDRO 15:53 → DIRADM 15:53 → EDIPHOLD 16:40 → 2N 19:52
PROVIDERS: ATTEND Internal Medicine